=== PATIENT | male | born 1990 ===

== ENCOUNTER 2019-10-19 21:34 | Emergency (ER) | payer OTHER ==
--- NOTE | 2019-10-19 22:14 | UC ---
Throat Pain/Nasal Oumar HPI - HPI Summary HPI Summary: ABOUT 1 HOUR PRIOR TO ARRIVAL PATIENT WAS EATING BROWN RICE WHEN HE FELT SOME GET CAUGHT IN HIS THROAT. STARTED COUGHING. HE COUGHED SO HARD HE HAD AN EPISODE OF VOMITING. NO BLOOD. STATES HE STILL FEELS SOMETHING IS CAUGHT IN THE RIGHT SIDE OF HIS THROAT. NO AIRWAY COMPROMISE. NO DIFFICULTY SWALLOWING. NO PAIN WITH SWALLOWING. JUST FEELS LIKE THERE IS SOMETHING THERE. IS QUITE ANXIOUS. - History of Current Complaint Stated Complaint: THROAT COMPLAINT Time Seen by Provider: 10/19/19 21:35 Hx Obtained From: Patient Onset/Duration: Sudden Onset, Lasting Hours, Still Present Severity: Moderate Pain Intensity: 3 Pain Scale Used: 0-10 Numeric Associated Signs & Symptoms: Positive: FB Sensation. Negative: Dysphagia, Drooling, Fever - Allergies/Home Medications Allergies/Adverse Reactions: Allergies Allergy/AdvReac Type Severity Reaction Status Date / Time No Known Allergies Allergy Verified 10/19/19 21:51 Home Medications: Home Medications NK [No Home Medications Reported] 10/19/19 [History Confirmed 10/19/19] PMH/Surg Hx/FS Hx/Imm Hx Previously Healthy: Yes - Surgical History Surgical History: Yes - Family History Known Family History: Positive: Non-Contributory - Social History Alcohol Use: None Substance Use Type: None Smoking Status (MU): Never Smoked Tobacco Review of Systems All Other Systems Reviewed And Are Negative: Yes Constitutional: Positive: Negative Respiratory: Positive: Negative Cardiovascular: Positive: Negative Gastrointestinal: Positive: Other - FB SENSATION RIGHT SIDE OF THROAT Physical Exam Triage Information Reviewed: Yes Appearance: Well-Appearing, No Pain Distress, Well-Nourished Vital Signs: Initial Vital Signs Temp 98.3 F 10/19/19 21:38 Pulse 61 10/19/19 21:38 Resp 16 10/19/19 21:38 BP 113/75 10/19/19 21:38 Pulse Ox 98 10/19/19 21:38 Vital Signs Reviewed: Yes Eyes: Positive: Conjunctiva Clear ENT: Positive: Hearing grossly normal, Pharynx normal. Negative: Pharyngeal erythema, Trismus, Muffled voice, Hoarse voice Neck: Positive: Supple, Nontender, No Lymphadenopathy Respiratory Exam: Normal Cardiovascular Exam: Normal Abdomen Description: Positive: Soft Musculoskeletal: Positive: No Edema Neurological: Positive: Alert Psychological: Positive: Age Appropriate Behavior Skin: Negative: Rashes Throat Pain/Nasal Course/Dx - Course Course Of Treatment: PATIENT HAS FOREIGN BODY SENSATION IN HIS THROAT AFTER EATING PLAIN BROWN RICE TONIGHT. PHYSICAL EXAM TODAY IS NORMAL. PATIENT IS HANDLING HIS OWN SECRETIONS WITHOUT ANY DIFFICULTY, SITTING IN THE EXAMINATION ROOM DRINKING WATER. NO AIRWAY COMPROMISE. ADVISED TO STAY WELL-HYDRATED AND THAT SYMPTOMS WOULD LIKELY BE IMPROVED BY THE MORNING. IF AT ANY POINT HIS SYMPTOMS WORSEN HE IS TO GO DIRECTLY TO THE EMERGENCY ROOM. IF HE STILL HAS DISCOMFORT IN THE MORNING HE WILL CALL GI FOR FURTHER EVALUATION. - Differential Dx/Diagnosis Provider Diagnosis: Foreign body sensation in throat Discharge ED - Sign-Out/Discharge Documenting (check all that apply): Patient Departure All imaging exams completed and their final reports reviewed: No Studies - Discharge Plan Condition: Stable Disposition: HOME Referrals: [facility] [Provider Group] - If Needed [facility] [Provider Group] - 1 Day Additional Instructions: YOUR EXAM IS REASSURING TODAY. YOUR AIRWAY IS PATENT. YOU ARE HANDLING YOUR SALIVA/SECRETIONS APPROPRIATELY WITH NO DIFFICULTY SWALLOWING. IF THERE IS SOME RICE LODGED IN YOUR THROAT IT SHOULD DISSOLVE. STAY WELL HYDRATED. TAKE IBUPROFEN. YOU SHOULD FEEL BETTER IN THE MORNING. IF YOUR SYMPTOMS WORSEN AT ANY TIME GO DIRECTLY TO THE EMERGENCY ROOM FOR FURTHER EVALUATION. IF YOUR SYMPTOMS ARE PERSISTENT IN THE MORNING CALL GI TO SCHEDULE AN APPOINTMENT TO BE SEEN FOR FURTHER EVALUATION. SYMPTOMS WHICH WARRANT IMMEDIATE PRESENTATION TO THE ER INCLUDE BLOODY VOMIT, FEVER, INTOLERABLE PAIN, INABILITY TO SWALLOW YOUR OWN SALIVA OR AIRWAY COMPROMISE. - Billing Disposition and Condition Condition: STABLE Disposition: Home
== END 2019-10-19 22:28 | disposition home or self-care (01) ==
LOC: UCEAST 21:34
DX: R09.89 Other specified symptoms and signs involving the circulatory and respiratory systems (principal)
CPT/HCPCS: 99201; G0463